=== PATIENT | female | born 1990 | race Caucasian/White ===

== ENCOUNTER 2019-01-24 19:31 | Emergency (ER) | payer OTHER ==
[2019-01-24] MEDS ORDERED: Ibuprofen TAB* 600 MG PO ONE (20:01)
--- NOTE | 2019-01-24 20:10 | UC ---
Lower Extremity/Ankle HPI - HPI Summary HPI Summary: 28-year-old female presents with injury to her right ankle/foot that occurred one hour ago. She states she was at a barbecue and sustained inversion injury to her right ankle when stepping off a deck onto tile. She was able to bear weight with some difficulty there and also here in the ER. She denies injury to her knee or elsewhere. At first there is no discomfort in the foot and now she is starting to feel a little discomfort in the medial foot. - History of Current Complaint Stated Complaint: R ANKLE INJURY Time Seen by Provider: 01/24/19 19:55 Hx Obtained From: Patient Hx Last Menstrual Period: 11/07/15 - Allergies/Home Medications Allergies/Adverse Reactions: Allergies Allergy/AdvReac Type Severity Reaction Status Date / Time No Known Allergies Allergy Verified 01/24/19 20:12 PMH/Surg Hx/FS Hx/Imm Hx Previously Healthy: Yes - last menstrual period one week ago - Surgical History Surgical History: None - Family History Known Family History: Positive: Non-Contributory - Social History Lives: With Family Alcohol Use: Rare Substance Use Type: None Smoking Status (MU): Never Smoked Tobacco Review of Systems All Other Systems Reviewed And Are Negative: Yes Gastrointestinal: Positive: Negative Neurovascular: Negative: Decreased Sensation, Decreased Pulses Musculoskeletal: Positive: Arthralgia, Decreased ROM. Negative: Edema Neurological: Positive: Negative Physical Exam Appearance: Well-Appearing, No Pain Distress, Well-Nourished Eye Exam: Normal ENT: Positive: Hearing grossly normal Neck: Positive: Supple Respiratory: Positive: Lungs clear Cardiovascular: Positive: Tachycardia Musculoskeletal: Positive: Other: - No tenderness at the proximal fibula or at either malleoli. There is a slight abrasion on the dorsal talus without tenderness. There is no effusion or swelling in the ankle. There is no pain at the fifth metatarsal. Limited range of motion but able to fully weight-bear and walk with antalgia Neurological Exam: Normal Skin Exam: Other - slight sunburn Diagnostics - Radiology x-ray right foot and ankle Radiology Interpretation Completed By: ED Physician - Negative for fracture Lower Extremity Course/Dx - Course Course Of Treatment: X-rays negative. Weightbearing. Tiny abrasion does not require dressing. Félix wrap applied, weight-bear as tolerated. - Differential Dx/Diagnosis Differential Diagnosis/HQI/PQRI: Contusion, Fracture (Closed), Sprain, Strain Provider Diagnosis: Mild sprain of right ankle, Right foot sprain Discharge - Sign-Out/Discharge Documenting (check all that apply): Patient Departure All imaging exams completed and their final reports reviewed: No - Discharge Plan Condition: Improved Disposition: HOME Prescriptions: Naproxen [Naproxen 500 mg tab] 500 mg PO BID PRN #15 tablet PRN Reason: pain/swelling Patient Education Materials: Ankle Sprain (ED) Referrals: [facility] [Outside] [facility] [place] [facility] [Outside] Additional Instructions: Rest, ice, elevate the affected extremity, Félix wrap for swelling and comfort. Ibuprofen as needed. Weight-bear as tolerated. Return if worse, new symptoms or other concerns. [facility] clinic and provide follow-up to you. Follow-up within 5-7 days' time if still having discomfort. - Billing Disposition and Condition Condition: IMPROVED Disposition: Home
[2019-01-24 20:11] VITALS: BP 140/91
--- NOTE | 2019-01-25 14:09 | UC ---
- Progress Note Progress Note: Patient Name: ELYSE SINGH Medical Record#: [id number] Ordering Physician: Latrell Parekh MD Acct.#: [id number] : 1990 Age: 28 Sex: F [facility] Exam Date: 01/24/191954 ADM Status: DEP ER Order Information: ANKLE RIGHT 3+VWS Accession Number: [id number] CPT: 65554 HISTORY: injury ., Right foot and ankle injury COMPARISONS: None relevant available at the time of dictation. VIEWS: 6, Frontal, lateral, and oblique views of the right foot and right ankle FINDINGS: BONE DENSITY: Normal. BONES: There is no displaced fracture. JOINTS: There is no arthropathy. ALIGNMENT: There is no dislocation. SOFT TISSUES: Unremarkable. OTHER FINDINGS: None. IMPRESSION: NO ACUTE OSSEOUS INJURY. IF SYMPTOMS PERSIST, RECOMMEND REPEAT IMAGING. R0 Preliminary Imaging Read R0 <Electronically signed by Ravi Aguillon MD in OV> 01/25/19 08 Dictated By: Ravi Aguillon MD Dictated Date/Time: 01/25/19 0800 Transcribed Date/Time: 01/25/19 2296 Copy to: CC:Latrell Parekh MD; No Primary Care Phys,NOPCP Imaging - [facility] Imaging - [facility] [address] [address] ph [phone]) ph ([phone]) ph ([phone]) This report is only to be considered final once signed by the Provider(s) as displayed in the "<Electronically Signed by >" field (s). Absence of a signature indicates the report is in a draft status and still needs to be finalized. In the event this document was created by someone other than the signing Provider, the individual initiating the document will be listed in the "Entered by:" or "Dictated by:" rao. 1 of 2 Course/Dx - Diagnoses Provider Diagnoses: Mild sprain of right ankle, Right foot sprain Discharge - Sign-Out/Discharge Documenting (check all that apply): Post-Discharge Follow Up All imaging exams completed and their final reports reviewed: Yes - Discharge Plan Condition: Improved Disposition: HOME Prescriptions: Naproxen [Naproxen 500 mg tab] 500 mg PO BID PRN #15 tablet PRN Reason: pain/swelling Patient Education Materials: Ankle Sprain (ED) Referrals: [facility] [Outside] [facility] [Outside] Additional Instructions: Rest, ice, elevate the affected extremity, Félix wrap for swelling and comfort. Ibuprofen as needed. Weight-bear as tolerated. Return if worse, new symptoms or other concerns. [facility] clinic and provide follow-up to you. Follow-up within 5-7 days' time if still having discomfort. - Billing Disposition and Condition Condition: IMPROVED Disposition: Home
== END 2019-01-24 20:45 | disposition home or self-care (01) ==
LOC: UCEAST 19:31
DX: S93.401A Sprain of unspecified ligament of right ankle, initial encounter (principal); S93.601A Unspecified sprain of right foot, initial encounter; X50.0XXA Overexertion from strenuous movement or load, initial encounter; X50.1XXA Overexertion from prolonged static or awkward postures, initial encounter; Y92.89 Other specified places as the place of occurrence of the external cause
CPT/HCPCS: 99202; A9270-GY; G0463

== ENCOUNTER 2019-04-04 07:44 | Emergency (ER) | payer OTHER ==
[2019-04-04 08:04] VITALS: BP 127/84
--- NOTE | 2019-04-04 08:22 | UC ---
Respiratory Complaint HPI - HPI Summary HPI Summary: For approx 2 wks she has had productive cough and it is affecting her throat/ sore throat, and ears/congested. She is not sure if she had a fever. eating well, drinking fluids well. denies sob or weakness or fatigue. No sick contacts. Smokes socially. denies allergies. she is requesting antibiotics. - History of Current Complaint Chief Complaint: UCRespiratory Stated Complaint: CHEST CONGESTION EAR PAIN SORE THROAT Time Seen by Provider: 04/04/19 07:56 Hx Obtained From: Patient Hx Last Menstrual Period: 03/18/19 Pain Intensity: 5 Pain Scale Used: 0-10 Numeric Aggravating Factors: Nothing Alleviating Factors: Nothing Associated Signs And Symptoms: Positive: URI, Nasal Congestion. Negative: Fever , Chills, Wheezing - Allergies/Home Medications Allergies/Adverse Reactions: Allergies Allergy/AdvReac Type Severity Reaction Status Date / Time No Known Allergies Allergy Verified 04/04/19 08:04 PMH/Surg Hx/FS Hx/Imm Hx - Additional Past Medical History Additional PMH: no chronic conditions. Previously Healthy: Yes - Surgical History Surgical History: None - Family History Known Family History: Positive: Non-Contributory - Social History Alcohol Use: Occasionally Substance Use Type: None Smoking Status (MU): Current Some Day Smoker Type: Cigarettes Amount Used/How Often: about once a week Review of Systems All Other Systems Reviewed And Are Negative: Yes Constitutional: Negative: Fever Skin: Negative: Rash Eyes: Negative: Drainage ENT: Positive: Sore Throat, Ear Ache - congested ears R>L, Sinus Congestion Respiratory: Positive: Cough - productive. Negative: Shortness Of Breath Gastrointestinal: Negative: Nausea Motor: Negative: Weakness Musculoskeletal: Negative: Myalgia Neurological: Negative: Headache, Weakness Physical Exam Triage Information Reviewed: Yes Appearance: Well-Appearing Vital Signs: Initial Vital Signs Temp 98.8 F 04/04/19 08:00 Pulse 90 04/04/19 08:00 Resp 16 04/04/19 08:00 BP 127/84 04/04/19 08:00 Pulse Ox 96 04/04/19 08:00 Vital Signs Reviewed: Yes Eyes: Positive: Conjunctiva Clear ENT: Positive: Pharynx normal, TMs normal, Uvula midline Neck: Positive: Supple, Nontender, No Lymphadenopathy Respiratory Exam: Normal Cardiovascular Exam: Normal Neurological: Positive: Alert Skin: Negative: Rashes Respiratory Course/Dx - Course Course Of Treatment: Cough x2 wks assoc. w/ productive phlegm, ear congestion and sore throat. Not thought to be pneumonia or strep. Exam unremarkable. Vitals good. sick contacts. Suspect viral etiology but pt. requesting antibiotcs. We had long disc re: virus vs. bacterial sources and that antibiotics do not treat viral infections. I do think this is viral. We discussed side effects of antibiotics. 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 - Differential Dx/Diagnosis Differential Diagnosis/HQI/PQRI: Asthma, Bronchitis, Lower Resp Infection Provider Diagnosis: Bronchitis Discharge - Sign-Out/Discharge Documenting (check all that apply): Patient Departure All imaging exams completed and their final reports reviewed: No Studies - Discharge Plan Condition: Good Disposition: HOME Prescriptions: Acetaminoph/Cod 120/12 mg LIQ* [Tylenol/Codeine 120/12 LIQ*] 10 ml PO Q4H PRN 5 Days #300 ml MDD 60mL PRN Reason: Cough Azithromycin TAB* [Zithromax TAB (Z-ELISHA) 250 mg #6 tabs] 2 tab PO .TODAY, THEN 1 DAILY #1 elisha Patient Education Materials: Acute Bronchitis (ED) Referrals: No Primary Care Phys,NOPCP [Primary Care Provider] - Additional Instructions: I do not think you have a bacterial infection and antibiotics do not kill viruses. You wanted antibiotics regardless of risks discussed. Please stay hydrated. I have sent a cough medication. - Billing Disposition and Condition Condition: GOOD Disposition: Home - Attestation Statements Provider Attestation: Per institutional requirements, I have reviewed the chart, however, I was not consulted specifically or made aware of this patient by the midlevel provider. I did not personally evaluate, interact with , or disposition this patient.
== END 2019-04-04 08:30 | disposition home or self-care (01) ==
LOC: UCEAST 07:44
DX: J40 Bronchitis, not specified as acute or chronic (principal); F17.210 Nicotine dependence, cigarettes, uncomplicated
CPT/HCPCS: 99212; G0463

== ENCOUNTER 2019-10-23 02:12 | Emergency (ER) | payer OTHER ==
[2019-10-23] MEDS ORDERED: Morphine 10 MG/ML VIAL (1 ml) IV ONE (02:26)
[2019-10-23] MEDS ORDERED: NS 0.9% 1000 ML** 1,000 ML IV ONE (02:26)
--- NOTE | 2019-10-23 02:28 | ED ---
Abdominal Pain/Female - HPI Summary HPI Summary: This patient is a 29 year old female presenting to [facility] with a chief complaint of diffuse abdominal and back pain. She states she recently has had a cold with a sore throat. She states an hour ago sudden onset pain woke her up. She states she has never had surgery on her abdomen. Her LNMP was 3 weeks ago. - History of Current Complaint Chief Complaint: EDAbdPain Stated Complaint: ABD/BACK PAIN PER PT Time Seen by Provider: 10/23/19 02:22 Hx Obtained From: Patient Hx Last Menstrual Period: 03/18/19 Onset/Duration: Lasting Hours Pain Intensity: 8 Pain Scale Used: 0-10 Numeric Location: Diffuse Allergies/Adverse Reactions: Allergies Allergy/AdvReac Type Severity Reaction Status Date / Time No Known Allergies Allergy Verified 04/04/19 08:04 Home Medications: Home Medications Naproxen [Naproxen 500 mg tab] 500 mg PO BID PRN #15 tablet 01/24/19 [Rx Confirmed 04/04/19] Acetaminoph/Cod 120/12 mg LIQ* [Tylenol/Codeine 120/12 LIQ*] 10 ml PO Q4H PRN 5 Days #300 ml MDD 60mL 04/04/19 [Rx] Azithromycin TAB* [Zithromax TAB (Z-ELISHA) 250 mg #6 tabs] 2 tab PO .TODAY, THEN 1 DAILY #1 elisha 04/04/19 [Rx] PMH/Surg Hx/FS Hx/Imm Hx Opthamlomology History: Denies: Hx Legally Blind EENT History: Denies: Hx Deafness Infectious Disease History: No Infectious Disease History: Denies: Traveled Outside the [place] in Last 30 Days - Family History Known Family History: Negative: Seizure Disorder - Social History Alcohol Use: Occasionally Substance Use Type: Reports: None Smoking Status (MU): Current Some Day Smoker Type: Cigarettes Amount Used/How Often: about once a week Review of Systems Positive: Sore Throat Positive: Abdominal Pain Positive: Other - Back pain All Other Systems Reviewed And Are Negative: Yes Physical Exam - Summary Physical Exam Summary: Appearance: Well-appearing, Obese, making abd exam somewhat unreliable, lying in bed comfortably Skin: Warm, dry, no obvious rash Eyes: sclera anicteric, no conjunctival pallor ENT: mucous membranes moist, pharynx appears normal Neck: Supple, nontender Respiratory: Clear to auscultation, no signs of respiratory distress Cardiovascular: Normal S1, S2. No murmurs. Normal distal pulses in tibial and radial bilaterally. Abdomen: Soft, Epigastric tenderness, normal active bowel sounds present Musculoskeletal: Normal, Strength/ROM Intact Neurological: A&Ox3, awake and alert, mentation is normal, speech is fluent and appropriate Psychiatric: affect is normal, does not appear anxious or depressed Triage Information Reviewed: Yes Vital Signs On Initial Exam: Initial Vitals Temp Pulse Resp BP Pulse Ox 98.0 F 105 18 133/90 98 10/23/19 02:14 10/23/19 02:14 10/23/19 02:14 10/23/19 02:14 10/23/19 02:14 Vital Signs Reviewed: Yes Procedures - Sedation Patient Received Moderate/Deep Sedation with Procedure: No Diagnostics - Vital Signs Vital Signs Temp Pulse Resp BP Pulse Ox 10/23/19 02:14 98.0 F 105 18 133/90 98 - Laboratory Result Diagrams: 10/23/19 02:37 10/23/19 02:37 Lab Statement: Any lab studies that have been ordered have been reviewed, and results considered in the medical decision making process. Re-Evaluation - Re-Evaluation First Eval Re-Evaluation Time: 04:48 Change: Improved Comment: Pain has resolved, abdominal exam is benign. Abdominal Pain Fem Course/Dx - Course Course Of Treatment: This patient is a 29 year old female presenting to [facility] with a chief complaint of diffuse abdominal and back pain. Labs reveal WBC 12.0 H, Absolute Neuts 7.9 H, Potassium 3.3 L, Glucose 110 H, AST 71 H, ALT 56 H, CRP 12.28 H, Urine Blood 3+ A, Urine RBC 3+ A, Ur Squamous Epithelial Cell Present A. Plan for discharge was discussed with the patient and she understands and agrees with this plan. - Diagnoses Provider Diagnoses: Biliary colic Discharge ED - Sign-Out/Discharge Documenting (check all that apply): Patient Departure - Discharge - Discharge Plan Condition: Improved Disposition: HOME Patient Education Materials: Biliary Colic (ED) Referrals: [facility] [Outside] Additional Instructions: I suspect your pain came on tonight due to passing a gallstone, based on your history, exam and lab findings. Since your symptoms have resolved it's ok to go home at this point, but you should see your doctor about getting an ultrasound of your gall bladder done. If that shows gallstones that would confirm my diagnosis, at which point you should be referred to one of our general surgeons in [facility] to schedule surgical removal of the gall bladder. - Billing Disposition and Condition Condition: IMPROVED Disposition: Home - Attestation Statements Document Initiated by Marya: Yes Documenting Scribe: Alvaro Lechuga Provider For Whom Marya is Documenting (Include Credential): Paras Malloy MD Scribe Attestation: I, Alvaro Lechuga, scribed for Paras Malloy MD on 10/24/19 at 0029. Scribe Documentation Reviewed: Yes Provider Attestation: The documentation as recorded by the Alvaro varma accurately reflects the service I personally performed and the decisions made by me, Paras Malloy MD Status of Scribe Document: Viewed
[2019-10-23 02:37] LABS: Urine Appearance Cloudy; Urine Bilirubin Negative (Negative); Urine Blood 3+ (Negative); Urine Color Yellow; Urine Glucose Negative (Negative); Urine Ketones Negative (Negative); Urine Nitrite Negative (Negative); Urine Protein Negative (Negative); Urine Specific Gravity 1.015 (1.010-1.030); Urine Urobilinogen Negative (Negative)
[2019-10-23 02:46] LABS: ABS Basophils 0.1 10^3/ul (0-0.2); ABS Eosinophils 0.3 10^3/ul (0-0.6); ABS Lymphocytes 2.9 10^3/ul (1.0-4.8); ABS Monocytes 0.7 10^3/ul (0-0.8); ABS Neutrophils 7.9 10^3/ul (1.5-7.7); Eosinophil % 2.8 %; Hematocrit 39 % (35-47); Hemoglobin 13.2 g/dL (12.0-16.0); Lymphocyte % 24.4 %; Mean Corpuscular HGB Conc 34 g/dL (31-36); Mean Corpuscular Hemoglobin 28 pg (27-31); Mean Corpuscular Volume 84 fL (80-97); Mean Platelet Volume 7.4 fL (7.4-10.4); Platelet Count 288 10^3/uL (150-450); Red Blood Count 4.63 10^6 /uL (3.70-4.87); Red Cell Distribution Width 14 % (10-15)
[2019-10-23 02:57] LABS: Urine Bacteria Absent (Absent); Urine Red Blood Cell 3+(>10/hpf) (Absent); Urine Squamous Epithelial Cell Present (Absent); Urine White Blood Cell Trace(0-5/hpf) (Absent)
[2019-10-23 03:06] LABS: ALT 56 U/L (7-52); AST 71 U/L (13-39); Albumin 4.6 g/dL (3.2-5.2); Albumin/Globulin Ratio 1.6 (1-3); Alkaline Phosphatase 66 U/L (34-104); Anion Gap 8 mmol/L (2-11); BUN/Creatinine Ratio 15.4 (8-20); Blood Urea Nitrogen 12 mg/dL (6-24); C Reactive Protein 12.28 mg/L (<8.01); CO2 Carbon Dioxide 28 mmol/L (22-32); Calcium 9.9 mg/dL (8.6-10.3); Chloride 102 mmol/L (101-111); EGFR African American 104.2 (>60); EGFR Non-African American 86.1 (>60); Globulin 2.8 g/dL (2-4); Glucose 110 mg/dL (70-100); Potassium 3.3 mmol/L (3.5-5.0); Sodium 138 mmol/L (135-145); Total Protein 7.4 g/dL (6.4-8.9)
[2019-10-23 03:12] LABS: HCG Pregnancy < 0.60 mIU/mL
[2019-10-23 05:03] VITALS: BP 143/93
== END 2019-10-23 05:02 | disposition home or self-care (01) ==
LOC: ED 02:12
DX: K80.42 Calculus of bile duct with acute cholecystitis without obstruction (principal); M54.9 Dorsalgia, unspecified; J02.9 Acute pharyngitis, unspecified; R10.9 Unspecified abdominal pain; Z72.0 Tobacco use
CPT/HCPCS: 36415; 80053; 81003; 81015; 83690; 84702; 85025; 86140; 87086; 96361; 96374; 99283; J2270